=== PATIENT | female | born 1975 | race Caucasian/White ===

== ENCOUNTER 2020-02-23 12:51 | Emergency (ER) | payer MEDICAID, SELFPAY ==
[2020-02-23 13:04] VITALS: BP 124/87; PULSE 86; RESP 18; TEMP 36.8; O2SAT 97; BMI 41.9
--- NOTE | 2020-02-23 13:14 | XR_ITS ---
PROCEDURE: XR KNEE LT 3V Patient Age:44Y CLINICAL INDICATION: LT KNEE PAIN for several years but worse over the past few weeks and recently. No known injury. No previous studies listed COMPARISON: No exams were available for comparison FINDINGS: Left knee AP lateral and oblique views performed.-No fracture or dislocation. No lytic or blastic change. There is satisfactory appearing mineralization. This is a nonweightbearing film joint spaces fairly well maintained with only relative borderline narrowing at the medial compartment on this nonweightbearing study. Perhaps some mild sharpening at margins medial compartment. On today's lateral view suspect possible small joint effusion at suprapatellar bursa.. I would also mild edema throughout the prominent abundant subcutaneous adipose, in contrast there is relatively minimal developed musculature at the thigh on AP view IMPRESSION: Osseous structures intact with no acute findings Of borderline narrowing medial compartment could reflect early degenerative changes but unimpressive on this nonweightbearing study. Suspect possible small joint effusion suprapatellar bursa. Dictated by: Haris Baldwin MD 02/23/2020 13:38 Electronically signed by Haris Baldwin MD in [place] 02/23/2020 13:38
--- NOTE | 2020-02-23 13:17 | HMH.EDGENADL ---
ED Disposition Clinical Impression: Cellulitis Disposition: Home, Self-Care Condition on Discharge: Good Instructions: Cellulitis Prescriptions: clindamycin HCL [Clindamycin HCl 300mg Cap] 300 mg PO Q6 10 Days #40 cap Transmission Status: Pending to [id number] - Critical Care Critical Care Time: No Attestation: On , the high probability of a clinically significant, sudden or life threatening deterioration of the following system(s) required my full and direct attention, intervention and personal management. The time I documented below is in addition to time spent performing reported procedures but includes the following listed in this critical care notation. Medical Decision Making - Medical Records Medical records reviewed: Yes: I reviewed the patient's medical records. - [place] Inquiry Pt receiving controlled substance: No Vital Signs: 02/23/20 13:04 Temperature 98.2 F Temperature Source Oral Pulse Rate [Right Radial] 86 Respiratory Rate 18 Blood Pressure [Right Arm] 124/87 Blood Pressure Mean [Right Arm] 99 Blood Pressure Source [Right Arm] Automatic Cuff Blood Pressure Position [Right Arm] Sitting 02 Sat by Pulse Oximetry 97 Oxygen Delivery Method Room Air - Lab Data Lab results reviewed: Yes: I reviewed the patient's lab results. Orders (Tests/Meds): ORDERS Category Date Time Status XR knee LT 3V Stat Exams 02/23/20 13:14 Ordered General Adult HPI - General Chief complaint: PAIN Stated complaint: AO 02/23/20 12:20 injury left knee Time Seen by Provider: 02/23/20 13:17 Mode of Arrival: Wheelchair Source of Information: Patient Limitations: No Limitations Description of Symptoms (Recalled from ER Triage Doc. by RN): PT C/O CHRONIC LT KNEE PAIN THAT HAS WORSENED SINCE 1230 TODAY WHEN STEPPING UP ONTO HER MOM'S STEP. - History of Present Illness Onset (ago): week(s) Location: lower extremity Radiation: non-radiation Severity: moderate Severity scale (1-10): 3 Quality: burning, other Consistency: constant Relieving factors: none Exacerbating factors: immobilization Associated symptoms: other (Patient has erythema over the leg significant for cellulitis) - Related Data Previous Rx's Medication Instructions Recorded clindamycin HCL [Clindamycin HCl 300 mg PO Q6 10 Days #40 cap 02/23/20 300mg Cap] Allergies Allergy/AdvReac Type Severity Reaction Status Date / Time clarithromycin [From axin] Allergy Verified 02/23/20 13:14 morphine Allergy Verified 02/23/20 13:14 [facility] History - Hepatitis A Screen Drug use history?: No High risk sexual behaviors?: No History of sexually transmitted infection?: No Currently employed?: No Childcare worker?: No Do you have indoor plumbing?: Yes Do you have electricity?: Yes Attestation statement:: This patient has been screened for Hepatitis A risk factors. I have reviewed the patient's past medical history: Yes Medical History: Denies:: Diabetes Mellitus Type 1, Diabetes Mellitus Type 2 - Social History Smoking Status: Current every day smoker Tobacco Type: cigarettes # Packs/Day (cigarettes): 1 Alcohol Intake: never Occupational Status: other ROS Obtained: Yes All systems reviewed & no additional complaints - Constitutional Constitutional: Reports system reviewed and no additional complaints, except as docu - Eyes Eyes: Reports system reviewed and no additional complaints, except as docu - ENT Ears, Nose, Mouth, and Throat: Reports system reviewed and no additional complaints, except as docu - Cardiovascular Cardiovascular: Reports system reviewed and no additional complaints, except as docu - Respiratory Respiratory: Yes system reviewed and no additional complaints, except as docu - Gastrointestinal Gastrointestingal: Reports: system reviewed and no additional complaints, except as docu - Genitourinary Male Genitourinary: Reports system reviewed and no additional compla
[2020-02-23 13:50] VITALS: BP 132/83; PULSE 81; RESP 18; TEMP 36.6; O2SAT 98
== END 2020-02-23 13:59 | disposition home or self-care (01) ==
LOC: ER 13:47
PROVIDERS: Emergency Provider Family Medicine; PCP Nurse Practitioner Family
DX: L03.116 Cellulitis of left lower limb (principal); F17.210 Nicotine dependence, cigarettes, uncomplicated; Z88.5 Allergy status to narcotic agent
CPT/HCPCS: 73562; 96372; 99282

== ENCOUNTER 2022-01-22 23:20 | Emergency (ER) | payer MEDICAID, SELFPAY ==
[2022-01-22 23:22] VITALS: BP 119/82; PULSE 96; RESP 20; TEMP 37.1; O2SAT 98; BMI 45.1
[2022-01-22 23:25] VITALS: BMI 43.8
--- NOTE | 2022-01-22 23:35 | CT_ITS ---
PROCEDURE INFORMATION: Exam: CT Abdomen And Pelvis With Contrast Exam date and time: 01/23/2022 12:20 AM Age: 46 years old Clinical indication: Abdominal pain; Generalized; Additional info: General abdomen pain, diarrhea, vomiting TECHNIQUE: Imaging protocol: Computed tomography of the abdomen and pelvis with contrast. Radiation optimization: All CT scans at this facility use at least one of these dose optimization techniques: automated exposure control; mA and/or kV adjustment per patient size (includes targeted exams where dose is matched to clinical indication); or iterative reconstruction. Contrast material: ISOVUE; Contrast volume: 75 ml; Contrast route: IV; COMPARISON: No relevant prior studies available. FINDINGS: Liver: Fatty liver and hepatomegaly. Gallbladder and bile ducts: Normal. No calcified stones. No ductal dilation. Pancreas: Normal. No ductal dilation. Spleen: Normal. No splenomegaly. Adrenal glands: Normal. No mass. Kidneys and ureters: Cortical scarring involving the kidneys. No hydronephrosis. Stomach and bowel: Unremarkable. No obstruction. No mucosal thickening. Appendix: No evidence of appendicitis. Intraperitoneal space: Unremarkable. No free air. No significant fluid collection. Arteries: Unremarkable. No abdominal aortic aneurysm. Lymph nodes: Unremarkable. No enlarged lymph nodes. Urinary bladder: Unremarkable as visualized. Reproductive: 3.4 cm right ovarian cyst. Bones/joints: Unremarkable. No acute fracture. Soft tissues: Metallic focus within the chest wall adjacent to the right posterior 12th rib. IMPRESSION: 1. No acute findings in the abdomen pelvis. 2. 3.2 cm right ovarian cyst.
[2022-01-22 23:37] LABS: Microscopic, Urine URINE MICROSCOPIC (MICROSCOPIC)
[2022-01-22 23:39] LABS: Appearance,Urine CLOUDY (Clear); Bilirubin,Urine Negative (Negative); Blood, Urine 3+ (Negative); Color,Urine YELLOW (Yellow); Glucose,Urine (UA) Negative (Negative); Ketones,Urine Negative (Negative); Leukocyte Esterase,Urine Negative (Negative); Nitrate,Urine Negative (Negative); Protein,Urine 1+ (Negative); Specific Gravity, Urine >= 1.030 (1.005-1.030); Urobilinogen,Urine 0.2 EU/dl (0.2)
[2022-01-22 23:45] VITALS: BP 115/70; PULSE 90; O2SAT 96
[2022-01-22 23:47] LABS: Bacteria,Urine 2+ /lpf; Squamous Epithelial Cell,Urine 20-50 #/hpf (0-5)
[2022-01-22 23:55] LABS: Basophils # 0.2 K/mm3 (0-0.2); Basophils % 3.1 % (0.1-2.0); Eosinophils # 0.1 K/mm3 (0.0-0.4); Eosinophils % 0.9 % (0.1-12.0); Hematocrit 40.7 % (37.0-47.0); Hemoglobin 12.7 g/dL (12.2-16.2); Lymphocytes # 0.8 K/mm3 (0.7-4.5); Lymphocytes % 11.9 % (10-50); Mean Corpuscular HGB Conc 31.3 g/dL (31.8-35.4); Mean Corpuscular Hemoglobin 22.9 pg (27.0-31.2); Mean Corpuscular Volume 73.2 fl (81-99); Mean Platelet Volume 7.4 fl (7.4-10.4); Monocytes # 0.4 K/mm3 (0.1-1.0); Monocytes % 5.6 % (1.7-9.3); Neutrophils # 5.5 K/mm3 (1.8-7.8); Neutrophils % 78.5 % (37.0-80.0); Platelet Count 410 K/mm3 (142-424); Red Blood Count 5.55 M/mm3 (4.20-5.40); Red Cell Distribution Width 18.2 % (11.5-17.5)
[2022-01-23 00:07] LABS: Alanine Aminotransferase 40 U/L (12-78); Albumin/Globulin Ratio 1.3 (1.1-1.8); Alkaline Phosphatase 85 U/L (38-126); Amylase 48 U/L (30-110); Anion Gap 10.7 mEq/L (5-15); Aspartate Amino Transferase 49 U/L (14-36); Bilirubin,Total 0.3 mg/dl (0.2-1.3); Blood Urea Nitrogen 15 mg/dl (7-17); Calcium 8.2 mg/dl (8.4-10.2); Carbon Dioxide 29 mmol/L (22.0-30.0); Chloride 99 mmol/L (98-107); Creatinine Clearance Estimated 57 mL/min (50-200); Estimated Glomerular Filt Rate 48 ml/min (>60); GFR (African American) 59 ML/MIN (>60); Globulin 3.1 g/dL (1.3-3.2); Glucose 133 mg/dl (74-100); Sodium 136 mmol/L (136-145); Total Protein,Serum 7.1 g/dl (6.3-8.2)
[2022-01-23 00:08] LABS: Potassium 2.7 mmoL/L (3.5-5.1)
[2022-01-23 00:12] LABS: C-Reactive Protein 44.3 mg/L (0-4); Lipase 60 U/L (23-300)
--- NOTE | 2022-01-23 00:14 | PC.NURSE ---
Critical potassium level of 2.7 called by Rodolfo in lab. notified.
[2022-01-23 00:15] VITALS: BP 101/64; PULSE 83; O2SAT 97
[2022-01-23 00:22] LABS: Erythrocyte Sedimentation Rate 19 mm/hr (0-20)
[2022-01-23 00:30] LABS: Adenovirus F 40/41, stool Not Detected (NotDetected); Astrovirus Not Detected (NotDetected); Campylobacter Not Detected (NotDetected); Clostridium Difficile A/B, PCR Not Detected (NotDetected); Cryptosporidium Not Detected (NotDetected); Cyclospora Cayetanesis Not Detected (NotDetected); Entamoeba histolytica Not Detected (NotDetected); Enteroaggregative E coli Not Detected (NotDetected); Enteropathogenic E coli Not Detected (NotDetected); Enterotoxigenic E coli Not Detected (NotDetected); Giardia lamblia Not Detected (NotDetected); Norovirus Not Detected (NotDetected); Plesimonas Shigalloides, PCR Not Detected (NotDetected); Salmonella, PCR Not Detected (NotDetected); Sapovirus Not Detected (NotDetected); Shiga-like toxin E coli Not Detected (NotDetected); Shigella Enterovasive E coli Not Detected (NotDetected); Vibrio Cholerae Not Detected (NotDetected); Vibrio, PCR Not Detected (NotDetected); Yersinia Entercolitica, PCR Not Detected (NotDetected)
--- NOTE | 2022-01-23 00:55 | HMH.EDNVD ---
ED Disposition Clinical Impression: Rotavirus enteritis, Hypokalemia Disposition: Home, Self-Care Condition on Discharge: Good Instructions: DI for Nausea -- Adult, DI for Rotavirus -- Adult Additional Instructions: fluids and see pcp for follow up Referrals: Linette Curry [Primary Care Provider] - - Critical Care Critical Care Time: No Attestation: On 01/22/22, the high probability of a clinically significant, sudden or life threatening deterioration of the following system(s) required my full and direct attention, intervention and personal management. The time I documented below is in addition to time spent performing reported procedures but includes the following listed in this critical care notation. Medical Decision Making - Medical Records Medical records reviewed: Yes: I reviewed the patient's medical records. - [place] Inquiry Pt receiving controlled substance: No Vital Signs: 01/22/22 23:22 01/22/22 23:45 01/23/22 00:15 Temperature 98.7 F Temperature Source Oral Pulse Rate 90 83 Pulse Rate [Right] 96 H Respiratory Rate 20 Blood Pressure 115/70 101/64 L Blood Pressure [Right Arm] 119/82 Blood Pressure Mean [Right Arm] 94 Blood Pressure Source [Right Arm] Automatic Cuff 02 Sat by Pulse Oximetry 98 96 97 Oxygen Delivery Method Room Air Room Air Room Air - Lab Data Lab results reviewed: Yes: I reviewed the patient's lab results. Lab Results 01/22/22 23:31: Urine Color Yellow, Urine Appearance Cloudy, Urine pH 6.0, Ur Specific [place] >= 1.030, Urine Protein 1+, Urine Glucose (UA) Negative, Urine Ketones Negative, Urine Blood 3+, Urine Nitrate Negative, Urine Bilirubin Negative, Urine Urobilinogen 0.2, Ur Leukocyte Esterase Negative, Urine RBC 10-20, Urine WBC 10-20, Ur Squamous Epith Cells 20-50, Urine Bacteria 2+ 01/22/22 23:45: WBC 7.0, RBC 5.55 H, Hgb 12.7, Hct 40.7, MCV 73.2 L, MCH 22.9 L, MCHC 31.3 L, RDW 18.2 H, Plt Count 410, MPV 7.4, Neut % (Auto) 78.5, Lymph % (Auto) 11.9, [place] % (Auto) 5.6, Eos % (Auto) 0.9, Baso % (Auto) 3.1 H, Neut # (Auto) 5.5, Lymph # (Auto) 0.8, [place] # (Auto) 0.4, Eos # (Auto) 0.1, Baso # (Auto) 0.2 01/22/22 23:45: Sodium 136, Potassium 2.7 L*, Chloride 99, Carbon Dioxide 29, Anion Gap 10.7, BUN 15, Creatinine 1.20 H, Estimated Creat Clear 57, Estimated GFR 48 L, Est GFR ( Amer) 59, Glucose 133 H, Calcium 8.2 L, Total Bilirubin 0.3, AST 49 H, ALT 40, Alkaline Phosphatase 85, C-Reactive Protein 44.3 H, Total Protein 7.1, Albumin 4.0, Globulin 3.1, Albumin/Globulin Ratio 1.3, Amylase 48 01/22/22 23:45: ESR 19 01/22/22 23:45: Procalcitonin 0.280 01/22/22 23:45: Lipase 60 01/23/22 00:20: Stl Aeromonas (PCR) Not detected, Stl C. cayetanensis PCR Not detected, Stool Rotavirus (PCR) Detected A, Stl Adenov F 40/41 PCR Not detected, Stool Astrovirus (PCR) Not detected, Stool Campylobacter PCR Not detected, Stl C.difficile Tox PCR Not detected, Stool Cryptosporidium PCR Not detected, Stl E.coli Shiga Tox PCR Not detected, Stool E coli O157 PCR Not detected, Stl Enterotoxigenic E PCR Not detected, Stool EPEC (PCR) Not detected, Stool EAEC (PCR) Not detected, Stl E. histolytica PCR Not detected, Stool Giardia Lamblia PCR Not detected, Stool Salmonella PCR Not detected, Stool Sapovirus (PCR) Not detected, Stl P. shigelloides PCR Not detected, Stl Shigella/EIEC PCR Not detected, St Y.enterocolitica PCR Not detected, Stool Vibrio (PCR) Not detected, Stl Vibrio cholerae PCR Not detected, Stl Norovirus GI/GII PCR Not detected Result diagrams: 01/22/22 23:45 01/22/22 23:45 Orders (Tests/Meds): ED MEDICATIONS Generic Name Dose Route Start Last Admin Trade Name Freq PRN Reason Stop Dose Admin Sodium Chloride 1,000 mls @ 999 mls/hr 01/22/22 23:45 01/22/22 23:35 Sod Chlor 0.9% 1000ml Bag IV 01/23/22 00:45 999 mls/hr .Q1H1M KIKI Administration Sodium Chloride 1,000 mls @ 999 mls/hr 01/23/22 01:15 01/23/22 01:14 Sod Chlor 0.9% 1000ml Bag IV 01/23/22
--- NOTE | 2022-01-23 01:21 | PC.NURSE ---
Pt given supriya jackie, ice chips, and more IVF. She is sitting up in bed c/o RLS issues and cramping in legs. Pt takes propanolol at home, requesting anything to help these cramps . Educated that d/t her low potassium it can cause cramps. Offered warm blankets, chair to help reposition pt, she would like medication to help it . Again educated about potassium and it was given.
--- NOTE | 2022-01-23 01:45 | PC.NURSE ---
called lab 35min left on diarrhea panel
[2022-01-23 02:20] LABS: Rotavirus A Detected (NotDetected)
[2022-01-23 03:08] VITALS: BP 101/64; PULSE 83; RESP 18; TEMP 36.8; O2SAT 99
== END 2022-01-23 03:12 | disposition home or self-care (01) ==
PROVIDERS: Emergency Provider Emergency Medicine; PCP Nurse Practitioner Family
DX: A08.0 Rotaviral enteritis (principal); E87.6 Hypokalemia; Z88.5 Allergy status to narcotic agent; F17.210 Nicotine dependence, cigarettes, uncomplicated
CPT/HCPCS: 74177; 80053; 81001; 82150; 83690; 84145; 85025; 85651; 86140; 87086; 87507; 96365; 96375; 99284; J2405; Q9967